=== PATIENT | male | born 1980 | race Two or more races ===

== ENCOUNTER 2016-09-09 22:52 | Emergency (ER) | payer MEDICARE, OTHER ==
--- NOTE | ~2016-09-09 | EKG ---
PATIENT: LIO ARMANDO UNIT #: [id number] Ventricular Rate: 85 BPM Atrial Rate: 85 BPM P-R Interval: 158 ms QRS Duration: 80 ms Q-T Interval: 380 ms QTC Calculation(Bezet): 452 ms P Pool: 34 degrees Calculated R Pool: -20 degrees Calculated T Pool: 2 degrees Diagnosis Line: Normal sinus rhythm Diagnosis Line: Normal ECG Diagnosis Line: When compared with ECG of 19-FEB-2013 11:14, Diagnosis Line: No significant change was found Diagnosis Line: Confirmed by BRIE CARLIN MD ([id number]) on 09/12/2016 Diagnosis Line: 10:56:18 PM INTERPRETING MD: RAEGAN EMERSON
--- NOTE | ~2016-09-09 | CR72 ---
[facility] A Service of [facility] RADIOLOGY TEXT RESULTS PATIENT: LIO ARMANDO LOCATION: [facility] : 80 UNIT #: [id number] AGE: [address]: Chepe Dominguez MD SEX: M ORDER DR: [id number] [facility] [address] [place], [place] [address] [id number] MR#: [id number] Acc #: [id number] NAME: LIO ARMANDO : 1980 SEX: M STUDY DATE/TIME: 09/09/2016 22:38 UNIT: [facility] ROOM: STUDY DESCRIPTION: CR Chest Single View Portable Attending Physician: Chepe Dominguez M.D. Ordering Physician: Chepe Dominguez M.D. Primary Care Physician: Primary Care Physician No MEDICAL IMAGING REPORT This report is preliminary unless electronic signature is present EXAM Portable chest, 09/09/2016 HISTORY 36-year-old male with shortness of air for 3 days. Weakness. COMPARISON Chest, 05/15/2016 FINDINGS Frontal chest demonstrates low lung volumes. Allowing for this, the lungs appear clear. No pleural effusion or pneumothorax. Heart size and mediastinum are within normal limits allowing for portable technique and poor inspiration. Mediastinum and pulmonary vasculature unremarkable. IMPRESSION No acute cardiopulmonary findings. Dictated by... Roger Parker M.D. THIS IS AN ELECTRONICALLY VERIFIED REPORT Roger Parker M.D. at 09/11/2016 4:42 PM Radha TD: 09/10/2016 16:13 JOB #: [id number] MEDICAL IMAGING REPORT Page 1 of 1 COPY
--- NOTE | ~2016-09-09 | CT71 ---
[facility] A Service of [facility] RADIOLOGY TEXT RESULTS PATIENT: LIO ARMANDO LOCATION: [facility] : 80 UNIT #: [id number] AGE: [address]: Chepe Dominguez MD SEX: M ORDER DR: [id number] [facility] [address] [place], [place] [address] [id number] E MR#: [id number] Acc #: [id number] NAME: LIO ARMANDO : 1980 SEX: M STUDY DATE/TIME: 09/09/2016 23:22 UNIT: NAZ ROOM: STUDY DESCRIPTION: CT Head Wo Contrast Attending Physician: Chepe Dominguez M.D. Ordering Physician: Chepe Dominguez M.D. Primary Care Physician: Primary Care Physician No MEDICAL IMAGING REPORT This report is preliminary unless electronic signature is present EXAM CT head without contrast, 09/09/2016 HISTORY 36-year-old male with headache for 2 days. Weakness. History of prior brain tumor and craniotomy. COMPARISON CT head 05/15/2016. Brain MRI 06/10/2016. TECHNIQUE Routine unenhanced axial images performed through the brain. This CT exam was performed with one or more of the following radiation dose reduction techniques: automatic exposure control, adjustment of mA and/or kV according to patient size, and iterative reconstruction. FINDINGS Postsurgical changes of the right parietal lobe are again noted. No evidence of acute hemorrhage, infarction, mass lesion, or abnormal extraaxial fluid collection. No midline shift or focal mass effect. Ventricular system is normal in size and configuration. Right parietal craniotomy. No acute bony abnormality. Mucosal thickening throughout the paranasal sinuses. Visualized mastoid air cells are clear. IMPRESSION 1. No acute intracranial abnormality. 2. Postsurgical changes from right parietal craniotomy. 3. Paranasal sinus mucosal thickening. Dictated by... Roger Parker M.D. [facility] A Service [facility] RADIOLOGY TEXT RESULTS PATIENT: LIO ARMANDO LOCATION: [facility] : 80 UNIT #: [id number] AGE: [address]: Chepe Dominguez MD SEX: M ORDER DR: THIS IS AN ELECTRONICALLY VERIFIED REPORT Roger Parker M.D. at 09/11/2016 4:42 PM Radha TD: 09/10/2016 16:25 JOB #: [id number] MEDICAL IMAGING REPORT Page 1 of 1 COPY
[~2016-09-09 22:52] MED LIST: DEXAMETHASONE1 MG PO; KEPPRA500 M2 DOB; MORGIDOX100 MG PO; PRO-AMATINE5 M1 DOB; ZOFRAN ODT4 MG PO
[2016-09-09 23:14] LABS: URINE SOURCE CLEAN CATCH
[2016-09-09 23:18] LABS: BASOPHIL% 0.3 % (0-2.5); EOSINOPHIL# 0.1 X10e3 (0-0.7); EOSINOPHIL% 1.9 % (0.0-7.0); HEMATOCRIT 35.8 % (38.0-50.0); HEMOGLOBIN 11.6 gm/dL (13.0-16.0); LYMPHOCYTE# 0.5 X10e3 (1.0-3.5); LYMPHOCYTE% 13.9 % (17.0-45.0); MEAN CORPUSCULAR HEMOGLOBIN 29.4 PG (28-34); MEAN CORPUSCULAR HGB CONC 32.3 g/dL (30-36); MEAN PLATELET VOLUME 8.3 FL (6.5-11.5); MONOCYTE# 0.1 X10e3 (0-1.0); NEUTROPHIL# 3.1 X10e3 (1.5-7.1); NEUTROPHIL% 80.9 % (40-75); PLATELET COUNT 122 X10e3 (140-420); RED BLOOD COUNT 3.93 X10e (3.90-5.60); RED CELL DISTRIBUTION WIDTH 17.8 % (11.0-15.5); WHITE BLOOD COUNT 3.8 X10e3 (4.0-10.5)
[2016-09-09 23:22] LABS: URINE APPEARANCE CLEAR; URINE BILIRUBIN NEG (NEG); URINE BLOOD NEG (NEG); URINE COLOR YELLOW; URINE GLUCOSE NEG (NEG); URINE KETONE NEG (NEG); URINE LEUKOCYTE ESTERASE NEG (NEG); URINE NITRATE NEG (NEG); URINE PROTEIN NEG (NEG)
[2016-09-09 23:23] LABS: DIFF IND NO
[2016-09-09 23:26] LABS: CULTURE INDICATED? NO
[2016-09-09 23:32] LABS: PARTIAL THROMBOPLASTIN TIME 23.2 SECONDS (23.5-31.3); PROTHROMBIN TIME (PATIENT) 10.7 SECONDS (9.6-11.5)
[2016-09-09 23:40] LABS: ALBUMIN SERUM 3.3 g/dL (3.5-5.0); BILIRUBIN, DIRECT 0.1 mg/dL (0.0-0.2); BILIRUBIN,INDIRECT 0.6 mg/dL (0.0-0.9); BILIRUBIN,TOTAL 0.7 mg/dL (0.2-2.0); BUN/CREATININE RATIO 18.57; CALCIUM SERUM 8.8 mg/dL (8.4-10.2); CREATININE SERUM 0.7 mg/dL (0.6-1.4); GLOM FILT RATE Estimated 121.5 mL/min (>60); POTASSIUM 3.4 mmol/L (3.5-5.1); PROTEIN TOTAL SERUM 7.2 g/dL (6.0-8.3)
[2016-09-10 00:09] LABS: CK TOTAL 17 IU/L (36-174)
[2016-09-10 00:19] LABS: POC - CKMB <1.0 ng/mL (0.0-7.9); POC - TROPONIN <0.05 ng/mL (<=0.05)
== END 2016-09-10 01:10 | disposition home or self-care (01) ==
LOC: CED 22:52
PROVIDERS: Emergency Medicine
DX: R51 Headache (principal)
CPT/HCPCS: 36415; 70450; 71010; 80048; 80076; 81003; 82550; 82553; 82947; 84484; 85025; 85610; 85730; 93005; 96374; 96375; 99284; J1885; J2405

== ENCOUNTER 2017-02-19 11:11 | Inpatient (IN) | payer MEDICARE, OTHER ==
[~2017-02-19] VITALS: Ht 152.4 cm; Wt 58.0 kg
--- NOTE | ~2017-02-19 | CO ---
Unit #: [id number] #: [id number] Patient: LIO ARMANDO [id number] [address] [address] [id number] I MR#: [id number] NAME: LIO ARMANDO ROOM: 331 Age: 36 Sex: M Admission Date: 02/19/2017 : 1980 Attending Physician: Toño Tolentino M.D. Primary Care Physician: Primary Care Physician No Consultation Date: 02/20/2017 CONSULTATION REPORT REASON FOR CONSULTATION Rule out central nervous system infectious process. 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 An MRI was done, which showed new lesions. There was some concern that there might be an infectious process. An LP is being planned for tomorrow. Infectious Disease consultation is requested for further evaluation and antibiotic management. The patient denies any fevers, chills, cough, congestion, nausea, vomiting, diarrhea, chest pain, or dizziness. PAST MEDICAL HISTORY 1. Craniotomy. 2. Astrocytoma as noted above. SOCIAL HISTORY Noncontributory. FAMILY HISTORY Noncontributory. ALLERGIES No known drug allergies. CURRENT MEDICATIONS List reviewed. No antibiotics at this time. PHYSICAL EXAMINATION GENERAL: Lying in bed, does not seem to be in any distress, although sick-looking individual. VITAL SIGNS: Temperature 97.2, pulse 67, respirations 16, blood pressure 112/74. NECK: Supple. CHEST: Clear to auscultation. HEART: Normal S1 and S2. ABDOMEN: Soft and nontender. EXTREMITIES: Show no edema. DIAGNOSTIC STUDIES IMAGING STUDIES: MRI of the brain noted multiple new lesions, some vasogenic edema. It does not look like there was any enhancement of these lesions. Unit #: [id number] #: [id number] Patient: LIO ARMANDO LABORATORY RESULTS: BUN is 11, creatinine 0.6. AST and ALT normal. WBC 2.9, hemoglobin 11.3, platelets 165. ASSESSMENT 1. . 2. Astrocytoma. 3. Less likely to be infectious process. PLAN At this time, I will go ahead and hold off antibiotic therapy, seems to be fairly stable. We will follow up on LP results and decide if he needs any further workup or any empiric treatment. Further recommendation depending upon the course. I would like thank Dr. Crawford for requesting us to participate in the care of this patient. We will follow this patient along with you. Dictated by... Carrol Bajwa TD: 02/21/2017 04:06 JOB #: [id number] CONSULTATION REPORT Page 1 of 1 X Deon Hsu MD X CONSULTATION REPORT
--- NOTE | ~2017-02-19 | EKG ---
PATIENT: LIO ARMANDO UNIT #: [id number] Ventricular Rate: 91 BPM Atrial Rate: 91 BPM P-R Interval: 160 ms QRS Duration: 82 ms Q-T Interval: 362 ms QTC Calculation(Bezet): 445 ms P [place]: 23 degrees Calculated R [place]: -31 degrees Calculated T [place]: -5 degrees Diagnosis Line: Normal sinus rhythm Diagnosis Line: Left axis deviation Diagnosis Line: Minimal voltage criteria for LVH, may be normal Diagnosis Line: variant Diagnosis Line: Abnormal ECG Diagnosis Line: When compared with ECG of 09-SEP-2016 23:02, Diagnosis Line: No significant change was found Diagnosis Line: Confirmed by JANEEN VALLEJO MD ([id number]) on Diagnosis Line: 02/19/2017 2:27:21 PM INTERPRETING MD: GENEVIEVE EMERSON
--- NOTE | ~2017-02-19 | HP ---
Unit #: [id number] #: [id number] Patient: LIO ARMANDO [id number] [address] [address] [id number] I MR#: [id number] NAME: LIO ARMANDO ROOM: [id number] Age: 36 Sex: M Admission Date: 02/19/2017 : 1980 Attending Physician: Florecita Sanderson M.D. Primary Care Physician: No Primary Care Physician HISTORY AND PHYSICAL CHIEF COMPLAINT Chief complaint is left-sided facial droop. HPI The patient is a 36-year-old male with past medical history of astrocytoma, seizure disorder, DVT who presented to the emergency department for evaluation of the above. The patient was last normal in the afternoon on February 17, 2017. He has had progressive left facial droop and worsening left-sided weakness. He denies any fever. He does have a history of astrocytoma. He is unable to tell me when his last dose of chemotherapy was. He is in a wheelchair at baseline. In the emergency department Dr. Garcia, the emergency room physician, spoke with Dr. Crawford, who recommended Decadron and Keppra, which were given. MRI is pending at the time of this dictation. He is being admitted to [facility] for evaluation and further treatment. PAST MEDICAL HISTORY 1. Admission to [facility] May 01 through the 2015 for chemotherapy related to astrocytoma. 2. Astrocytoma diagnosed in 2012 status post craniotomy, chemotherapy and radiation. Per Dr. Crawford's note from May 02, 2016, the patient received Temodar. It is unclear when his last dose was. 3. Seizures. 4. History of DVT. PAST SURGICAL HISTORY Craniotomy. SOCIAL HISTORY The patient does not have a history of tobacco or alcohol use. ALLERGIES No known allergies. HOME MEDICATIONS None. REVIEW OF SYSTEMS A complete review of systems is negative except as indicated in the HPI. PHYSICAL EXAM Unit #: [id number] #: [id number] Patient: LIO ARMANDO VITAL SIGNS: Temperature is 97.4, pulse 94, respirations 16, blood pressure 109/77, oxygen saturation 100% on room air. GENERAL: The patient is sleeping but wakes to voice. HEENT: The head is atraumatic. Mucous membranes are moist. NECK: Supple. Trachea is midline. CARDIOVASCULAR: Regular rate and rhythm. RESPIRATORY: Lungs are clear to auscultation bilaterally with no increased work of breathing. ABDOMEN: Soft, nontender with bowel sounds present in all 4 quadrants. EXTREMITIES: Extremities are nontender with no pedal edema. NEURO: The patient is oriented x3. He does have a left facial droop. The left upper and lower extremity demonstrate weakness. The left upper extremity is somewhat flaccid. The left lower extremity - The patient is able to lift off the bed. Sensation is subjectively decreased. PSYCHIATRIC: Mood and affect are normal. The patient has somewhat flat affect. SKIN: Skin of examined areas is warm and dry. DIAGNOSTIC TESTS CARDIOVASCULAR: EKG shows normal sinus rhythm with a rate of 91 beats per minute. IMAGING: MRI of the brain with and without contrast is pending. LABORATORY: Complete blood count notable for hemoglobin, hematocrit of 11.8 and 35.2 respectively. Comprehensive metabolic panel is notable for albumin of 3.3. INR is 1. ASSESSMENT The patient is a 36-year-old male with: 1. Left facial droop, new, and worsening left-sided weakness concerning for progression of astrocytoma. 2. History of astrocytoma. MRI is currently pending. The patient received Keppra and Decadron in the emergency department. 3. Normocytic anemia. The patient's hemoglobin is 11.8. 4. History of seizure disorder, previously on Keppra. The patient is not currently taking Keppra. 5. History of DVT. PLAN 1. Admit to intermediate level. 2. NPO until speech evaluation. 3. Speech therapy to evaluate and treat. 4. Normal saline at 75 mL an hour. 5. Follow up results of MRI. 6. Decadron 4 mg IV q.6 hours. 7. Keppra 500 mg IV q.12 hours. 8. Neuro checks. 9. Consult Dr. Crawford regarding astrocytoma and likely progression of disease. 10. Serial cardiac enzymes. 11. Fall precautions. 12. Bedrest. 13. P.r.n. Tylenol. 14. P.r.n. Zofran. 15. Repeat labs in the morning. 16. SCDs for DVT prophylaxis. 17. Additional workup and consultants based on above. Unit #: [id number] #: [id number] Patient: LIO ARMANDO Dictated by Carrol Pal/fredi TD: 02/19/2017 15:50 JOB #: [id number] HISTORY AND PHYSICAL Page 1 of 1 X Florecita Sanderson MD X HISTORY AND PHYSICAL
--- NOTE | ~2017-02-19 | CO ---
Unit #: [id number] #: [id number] Patient: LIO ARMANDO [id number] [address] [place], [place] [address] [id number] I MR#: [id number] NAME: LIO ARMANDO ROOM: 331 Age: 36 Sex: M Admission Date: 02/19/2017 : 1980 Attending Physician: Toño Tolentino M.D. Primary Care Physician: No Primary Care Physician CONSULTATION REPORT CHIEF COMPLAINT Started with low-grade astrocytoma in 2012, recurrent GBM, partial resection, chemoradiation, Avastin and irinotecan, progressive disease, history of PE. HISTORY OF PRESENT ILLNESS This is a 36-year-old male who is from [facility]. Patient was diagnosed with grade I astrocytoma during May 2013. Patient had resection, subsequently had radiation. Now, recently patient presented with bilateral lower extremity weakness, left greater than the right. MRI of the brain showed progressive disease. Patient had right frontal, parietal lobe mass. It was measuring 5 cm. Patient had partial resection. The case was discussed with the tumor board. He first received radiation and Temodar. Recently patient had significant decline in performance status. He has been receiving Avastin and irinotecan. He has excellent quality of life. Now, he has a significant decline in performance status. Has difficulty walking. Patient had an MRI of the brain last week at [facility]. Patient also had MRI of the brain in this hospital yesterday. There is widespread disease. There is ventriculitis. There is edema. There is changes consistent with possible side effect of radiation or Avastin. He feels weak, tired, low energy level, worried about the prognosis. REVIEW OF SYSTEMS CONSTITUTIONAL: Significant decline in performance level. EYES: No visual symptoms. EARS, NOSE AND THROAT: There is no runny nose or sore throat or difficulty hearing. CARDIOVASCULAR: No chest pain. No shortness of breath. No palpitations. No orthopnea. No PND. RESPIRATORY: No cough. No wheezing. No hemoptysis. GASTROINTESTINAL: No nausea, vomiting, diarrhea, constipation, hematochezia or melena. GENITOURINARY: No urinary frequency, hesitancy or urgency. No blood in the urine. MUSCULOSKELETAL: No muscle or joint pain. NEUROLOGIC: No headache. No numbness or tingling. No weakness. No seizure. PSYCHIATRIC: No anxiety, depression or mood disturbance. ENDOCRINE: No excessive urination or thirst. DERMATOLOGIC: No rash or change in the skin. Unit #: [id number] #: [id number] Patient: LIO ARMANDO ALLERGIC/IMMUNOLOGIC: No symptoms. HEMATOLOGIC/LYMPHATIC: Denies any symptoms. PAST MEDICAL HISTORY Past medical history is progressive GBM, DVT/PE. ALLERGIES Allergic to none. SOCIAL HISTORY No smoking. No alcohol. No drugs. Used to work in a warehouse. Now on disability. PAST SURGICAL HISTORY Craniotomy twice. FAMILY HISTORY Negative for cancer. PHYSICAL EXAM VITALS: Afebrile. Pulse 67, respirations 16, O2 sat on 2 liters 99%, blood pressure 127/54. HEENT: Moist mucosa. Pupils equally reactive to light. Extraocular muscles intact. Sclerae anicteric. No obvious bleeding from nasal mucosa or oral mucosa. Scalp normal. Hearing normal. NECK: No JVD. No lymphadenopathy. LYMPHATIC/HEMATOLOGIC: There is no palpable adenopathy in the neck, axilla or inguinal area. CARDIOVASCULAR: S1, S2. Regular rate and rhythm. No S3 or S4. RESPIRATORY: Chest symmetrical, normal. Clear to auscultation bilaterally. No wheezes, no rales, no rhonchi. No dullness to percussion. ABDOMEN/GASTROINTESTINAL: Abdomen is soft, nontender, nondistended. No hepatosplenomegaly. EXTREMITIES: There is no clubbing, no cyanosis, no edema. No varicose veins. NEUROLOGICAL: Patient is alert, awake and oriented x3. Cranial nerves II-XII are intact. Sensory grossly intact. Motor is 4/5 in all four extremities. Gait is normal. Station is normal. Language is normal. Memory is normal. DTRs +2 in all four extremities. MUSCULOSKELETAL: No joint swelling. No bony tenderness. No muscle tenderness. SKIN: No petechiae, no rash, no ecchymosis. PSYCHIATRIC: No anxiety. No delusions or hallucinations. There is no agitation. Eye contact is normal. Affect is appropriate. There is no flight of ideas. DIAGNOSTIC STUDIES LABS: WBC 2.9, hemoglobin 11.0, platelets 165. Creatinine is 0.6. LFT normal. IMAGING: MRI of the brain reviewed. There is progressive disease. There is edema. Patient also had MRI last week at [facility]. It was a perfusion study. Again, there is ventriculitis. ASSESSMENT AND PLAN This is a 36-year-old male who has the following active issues: 1. GBM. Patient has progressive disease. He received Avastin and Unit #: [id number] #: [id number] Patient: AIYANA ARMANDOID irinotecan for a long time. He had stable disease. Now there is no other option. He has edema. Will give him steroid. I doubt that he is (1) for any radiation. We will provide supportive care. 2. Infection. I talked to radiologist. There is possibility that he may have ventriculitis. I will get lumbar puncture. I will send fluid for cytology, cell count, viral panel and West Nile Virus. 3. Leukopenia. I will give him Granix. 4. Anemia. Will check iron studies. DISCUSSION I had an extensive discussion with patient, his friend, Dr. Bundy, neuroradiologist at [facility], and infectious disease attending, Dr. Hsu. At present, we will do LP. However, his prognosis is poor. Dictated by... Carrol Ruff TD: 02/21/2017 07:42 JOB #: [id number] CONSULTATION REPORT Page 1 of 1 X Omar Crawford MD CONSULTATION REPORT
--- NOTE | ~2017-02-19 | DS ---
Unit #: [id number] #: [id number] Patient: LIO ARMANDO [id number] [address] [address] [id number] I MR#: [id number] NAME: LIO ARMANDO ROOM: 331 Age: 36 Sex: M Admission Date: 02/19/2017 : 1980 Discharge Date: 02/23/2017 Attending Physician: Toño Tolentino M.D. Primary Care Physician: No Primary Care Physician DISCHARGE SUMMARY PRIMARY DIAGNOSIS Acute facial droop and left sided weakness secondary to progressive glioblastoma multiforme/astrocytoma. SECONDARY DIAGNOSES 1. Anemia. 2. Leukopenia. HOSPITAL COURSE The patient was admitted to the hospital with the worsening neurologic symptoms as described in the H and P. Consultation was obtained with Dr. Crawford with oncology. MRI of the brain was strongly supportive of a diagnosis of progressive worsening glioblastoma multiforme with new masses growing. For completeness, consideration was made for possible lumbar puncture but patient refused this and frankly patient's clinical symptoms were not consistent with DEAN OF WOMEN infection. He had no meningeal signs, no elevated white blood cell count on presentation and no fever. He did receive a dose of Granix for his low white blood cell count and his white blood cell count came up in response to the Granix. Patient has already undergone 2 rounds of chemotherapy as well as surgical resection for his glioblastoma in the past and at this point hospice was recommended by oncology. Hospice was consulted and patient and patient's family and friends were involved in meetings with in-person interpreters in his ely [place]. He will be going home with [facility] today and they will provide him with a comfort pack, hospital bed and other durable medical equipment. The only true symptomatic medication that he has needed on an as needed basis in the hospital has been Zofran approximately once per day I have given him a script for that. We have been treating him with dexamethasone and Keppra while here for his cerebral edema associated with his worsening tumor. I will continue those medications as well. If further symptoms develop, he will have a comfort pack at home courtesy of the hospice organization and they will prescribe further medications as needed. DISCHARGE DISPOSITION To home with hospice. DISCHARGE STATUS Terminal. DISCHARGE ACTIVITY Ad merna. Unit #: [id number] #: [id number] Patient: AIYANA ARMANDO DISCHARGE DIET Unrestricted. FOLLOWUP With the hospice physician per their regular routine. DISCHARGE MEDICATIONS 1. Dexamethasone 4 mg p.o. b.i.d. which should be continued as long as he can swallow. 2. Zofran 4 mg p.o. q.6 hours p.r.n. nausea. 3. Keppra 500 mg p.o. twice daily for seizure prophylaxis secondary to his brain lesions. Dictated by... Toño Tolentino M.D. LAILA/higinio TD: 02/27/2017 07:24 JOB #: [id number] DISCHARGE SUMMARY Page 1 of 1 X Toño Tolentino MD X DISCHARGE SUMMARY
--- NOTE | ~2017-02-19 | MR17 ---
[facility] A Service of [facility] & [facility] RADIOLOGY TEXT RESULTS PATIENT: LIO ARMANDO LOCATION: C3A 331-01 : 80 UNIT #: [id number] AGE: [address]: Toño Tolentino MD SEX: M ORDER DR: [id number] [facility] [address] [place], [place] [address] [id number] MR#: [id number] Acc #: [id number] NAME: LIO ARMANDO : 1980 SEX: M STUDY DATE/TIME: 02/19/2017 12:19 UNIT: C3A U ROOM: 331 STUDY DESCRIPTION: MR Brain WWo Contrast Attending Physician: Toño Tolentino M.D. Ordering Physician: Noah Garcia M.D. Primary Care Physician: Primary Care Physician No MRI CENTER REPORT This report is preliminary unless electronic signature is present. EXAM MRI of the brain with and without contrast dated 02/19/2017 COMPARISON MRI of the brain with and without contrast dated 09/13/2016. HISTORY Left-sided facial droop since 2012. It has worsened since then. Craniotomy 2012 for brain cancer. History of astrocytoma. FINDINGS Multisequence, multiplanar imaging of the brain was obtained with and without contrast. GFR measured greater than 60. 12 mL of MultiHance was administered intravenously. Right parietal craniotomy is seen. The previously measured resection cavity appears to have decreased in size from 3.7 x 2.9 cm to 2.7 x 2.2 cm. Immediately anterior to this region, there is interval new lesion measuring 3.3 x 2.3 cm. It contains evolving blood products and a tiny nodular less than 5 mm focus of enhancement abutting the right side of the falx cerebri. There is surrounding vasogenic edema in the right frontoparietal lobes, worse when compared to the prior study. Lateral to the resection cavity, there is another lesion which measures approximately 2.6 x 2.1 cm and has surrounding vasogenic edema, new since prior study. There is increased T2 signal extending from the right frontal donaldson radiata to the right external/extreme capsule and posterior limb of the right internal capsule, new since prior study. Abutting the atrium of the right lateral ventricle, there is interval new increased T2-signal lesion measuring about 5.1 x 1.3 cm. It is ill-defined and it causes mass effect on the adjacent lateral aspect of the ventricle. It extends towards the right temporal horn. Involvement of the ependymal surface cannot be excluded. Minimal ependymal surface enhancement of the right lateral ventricle, particularly in the atrium and posterior horn are noted. There is another new large lesion noted in the region of the right side of the tammy, right middle cerebellar peduncle and STS. [facility] A Service of [facility] RADIOLOGY TEXT RESULTS PATIENT: LIO ARMANDO LOCATION: C3A 331-01 : 80 UNIT #: [id number] AGE: [address]: Toño Tolentino MD SEX: M ORDER DR: right cerebellar hemisphere measuring 1.8 x 2.9 cm. There is increased T2 signal noted circumferentially around the fourth ventricle also. It is vague and ill defined. There is involvement of the superior aspect of the left posterolateral medulla close to the left inferior cerebellar peduncle. New. No hydrocephalus. Minimal 1-2 mm midline shift to the right. IMPRESSION 1. Interval new increased T2-signal lesions are noted in the right frontal, right parietal lobes adjacent to the previously known craniotomy site and resection cavity. 2. New lesions are also noted adjacent to the atrium and posterior horn of the right lateral ventricle tracking along the ventricle towards the right temporal horn. Mild ependymal enhancement is suspected. 3. Another lesion is noted in the region of the left middle cerebellar peduncle extending to the adjacent structures and also along the periphery of the fourth ventricle circumferentially. New. 4. These findings suggestive of progression of disease given that there are new locations when compared to the previous study. 5. There is hypointense gradient signal lesion noted in the right parietal and frontal lobes suggestive of evolving blood products. 6. The vasogenic edema associated with these lesions have also increased in the interval with suspicious minimal midline shift to the right but it does not appear to have significantly worsened when compared to the previous study. This shift could be related to parenchymal volume loss from prior surgery. 7. Patient is known to have glioblastoma multiforme. Dictated by... Juan Bueno M.D. THIS IS AN ELECTRONICALLY VERIFIED REPORT Juan Bueno M.D. at 02/20/2017 2:54 PM CPR/chelsy TD: 02/20/2017 09:22 JOB #: [id number] MRI CENTER REPORT Page 1 of 1 COPY
[2017-02-19 12:05] LABS: BASOPHIL% 0.4 % (0-2.5); EOSINOPHIL# 0.1 X10e3 (0-0.7); EOSINOPHIL% 1.4 % (0.0-7.0); HEMATOCRIT 35.2 % (38.0-50.0); HEMOGLOBIN 11.8 gm/dL (13.0-16.0); LYMPHOCYTE# 0.4 X10e3 (1.0-3.5); LYMPHOCYTE% 7.5 % (17.0-45.0); MEAN CORPUSCULAR HEMOGLOBIN 29.2 PG (28-34); MEAN CORPUSCULAR HGB CONC 33.5 g/dL (30-36); MEAN PLATELET VOLUME 7.3 FL (6.5-11.5); MONOCYTE# 0.2 X10e3 (0-1.0); MONOCYTE% 4.1 % (3.0-12.0); NEUTROPHIL# 4.7 X10e3 (1.5-7.1); NEUTROPHIL% 86.6 % (40-75); PLATELET COUNT 147 X10e3 (140-420); RED BLOOD COUNT 4.04 X10e (3.90-5.60); WHITE BLOOD COUNT 5.4 X10e3 (4.0-10.5)
[2017-02-19 12:06] LABS: DIFF IND NO
[2017-02-19] MEDS ORDERED: NO MEDICATIONS (12:09)
[2017-02-19 12:21] LABS: PROTHROMBIN TIME (PATIENT) 11.2 SECONDS (10.0-11.7)
[2017-02-19 12:30] LABS: ALBUMIN SERUM 3.3 g/dL (3.5-5.0); BILIRUBIN, DIRECT 0.1 mg/dL (0.0-0.2); BILIRUBIN,INDIRECT 0.5 mg/dL (0.0-0.9); BILIRUBIN,TOTAL 0.6 mg/dL (0.2-2.0); BUN/CREATININE RATIO 12.5; CALCIUM SERUM 8.6 mg/dL (8.4-10.2); CREATININE SERUM 0.8 mg/dL (0.6-1.4); POTASSIUM 3.5 mmol/L (3.5-5.1); PROTEIN TOTAL SERUM 7.1 g/dL (6.0-8.3)
[2017-02-19 12:44] LABS: PARTIAL THROMBOPLASTIN TIME <20.0 SECONDS (23.5-31.3)
[2017-02-19 14:55] LABS: CK TOTAL 19 IU/L (36-174)
[2017-02-19 20:53] LABS: CK TOTAL 22 IU/L (36-174)
[2017-02-20 02:23] LABS: BASOPHIL% 0.1 % (0-2.5); HEMATOCRIT 33.3 % (38.0-50.0); LYMPHOCYTE# 0.4 X10e3 (1.0-3.5); MEAN CORPUSCULAR HEMOGLOBIN 28.4 PG (28-34); MEAN PLATELET VOLUME 7.3 FL (6.5-11.5); MONOCYTE% 1.5 % (3.0-12.0); NEUTROPHIL# 2.5 X10e3 (1.5-7.1); NEUTROPHIL% 86.4 % (40-75); PLATELET COUNT 165 X10e3 (140-420); RED BLOOD COUNT 3.87 X10e (3.90-5.60); RED CELL DISTRIBUTION WIDTH 16.5 % (11.0-15.5); WHITE BLOOD COUNT 2.9 X10e3 (4.0-10.5)
[2017-02-20 02:33] LABS: DIFF IND YES
[2017-02-20 02:40] LABS: CK TOTAL 21 IU/L (36-174)
[2017-02-20 02:45] LABS: ALBUMIN SERUM 3.1 g/dL (3.5-5.0); BILIRUBIN,TOTAL 0.5 mg/dL (0.2-2.0); BUN/CREATININE RATIO 18.33; CALCIUM SERUM 8.8 mg/dL (8.4-10.2); CREATININE SERUM 0.6 mg/dL (0.6-1.4); GLOM FILT RATE Estimated 129.4 mL/min (>60); POTASSIUM 4.4 mmol/L (3.5-5.1); PROTEIN TOTAL SERUM 6.7 g/dL (6.0-8.3)
[2017-02-20 02:59] LABS: ELLIPTOCYTES PRESENT; OVALOCYTES PRESENT; PLATELET ESTIMATE NORMAL (NORMAL)
[2017-02-20 03:00] LABS: SCHISTOCYTES PRESENT; TEAR DROP CELLS PRESENT
[2017-02-20 03:01] LABS: POIKILOCYTOSIS MOD
[2017-02-21 07:38] LABS: HEMOGLOBIN 11.4 gm/dL (13.0-16.0); MEAN CELL VOLUME 87.7 FL (83-96); MEAN CORPUSCULAR HEMOGLOBIN 28.6 PG (28-34); MEAN CORPUSCULAR HGB CONC 32.7 g/dL (30-36); MEAN PLATELET VOLUME 8.2 FL (6.5-11.5); RED BLOOD COUNT 3.99 X10e (3.90-5.60); RED CELL DISTRIBUTION WIDTH 16.9 % (11.0-15.5)
[2017-02-21 07:40] LABS: WHITE BLOOD COUNT 17.5 X10e3 (4.0-10.5)
[2017-02-21 10:30] LABS: ALBUMIN SERUM 3.2 g/dL (3.5-5.0); BILIRUBIN,TOTAL 0.5 mg/dL (0.2-2.0); BUN/CREATININE RATIO 21.42; CREATININE SERUM 0.7 mg/dL (0.6-1.4); GLOM FILT RATE Estimated 121.5 mL/min (>60); POTASSIUM 3.5 mmol/L (3.5-5.1); PROTEIN TOTAL SERUM 6.8 g/dL (6.0-8.3)
[2017-02-22 06:52] LABS: BASOPHIL% 0.1 % (0-2.5); HEMATOCRIT 35.6 % (38.0-50.0); HEMOGLOBIN 11.6 gm/dL (13.0-16.0); LYMPHOCYTE# 0.6 X10e3 (1.0-3.5); LYMPHOCYTE% 3.2 % (17.0-45.0); MEAN CELL VOLUME 87.6 FL (83-96); MEAN CORPUSCULAR HEMOGLOBIN 28.6 PG (28-34); MEAN CORPUSCULAR HGB CONC 32.6 g/dL (30-36); MEAN PLATELET VOLUME 7.8 FL (6.5-11.5); MONOCYTE# 0.7 X10e3 (0-1.0); MONOCYTE% 3.8 % (3.0-12.0); NEUTROPHIL% 92.9 % (40-75); PLATELET COUNT 151 X10e3 (140-420); RED BLOOD COUNT 4.06 X10e (3.90-5.60); RED CELL DISTRIBUTION WIDTH 17.5 % (11.0-15.5); WHITE BLOOD COUNT 19.4 X10e3 (4.0-10.5)
[2017-02-22 06:53] LABS: DIFF IND NO
[2017-02-22 07:49] LABS: ALBUMIN SERUM 3.3 g/dL (3.5-5.0); BILIRUBIN,TOTAL 0.6 mg/dL (0.2-2.0); BUN/CREATININE RATIO 31.42; CALCIUM SERUM 8.9 mg/dL (8.4-10.2); CREATININE SERUM 0.7 mg/dL (0.6-1.4); GLOM FILT RATE Estimated 121.5 mL/min (>60); POTASSIUM 3.6 mmol/L (3.5-5.1); PROTEIN TOTAL SERUM 6.5 g/dL (6.0-8.3)
[2017-02-23] MEDS ORDERED: ZOFRAN PO (13:13)
[2017-02-23] MEDS ORDERED: DEXAMETHASONE4 MG PO (13:14)
[2017-02-23] MEDS ORDERED: KEPPRA500 M2 PO (13:15)
[2017-02-23] MEDS ORDERED: ATIVAN (13:22)
== END 2017-02-23 14:47 | DRG 54 ==
LOC: CED 11:11 → CEDOF 13:45 → CED 14:03 → CEDOF 14:03 → C3A PCU 19:41
PROVIDERS: Emergency Medicine; Family Medicine; Internal Medicine; Internal Medicine Hematology
PROC: 05H933Z Insertion of Infusion Device into Right Brachial Vein, Percutaneous Approach (ICD-10-PCS; principal; 2017-02-20)
DX: C71.9 Malignant neoplasm of brain, unspecified (principal); G93.6 Cerebral edema; D50.9 Iron deficiency anemia, unspecified; D72.819 Decreased white blood cell count, unspecified; R29.810 Facial weakness; R53.1 Weakness; Z51.5 Encounter for palliative care; G40.909 Epilepsy, unspecified, not intractable, without status epilepticus; Z87.891 Personal history of nicotine dependence; Z86.718 Personal history of other venous thrombosis and embolism
CPT/HCPCS: 36415; 70553; 80048; 80053; 80076; 82550; 82947; 84484; 85025; 85027; 85610; 85730; 87497; 92610; 93005; 96365; 96375; 99285; A9577; G8996-GN; G8997-GN; G8998-GN; J1100; J1447; J1953; J2405